=== PATIENT | male | born 1990 | race Caucasian/White ===

== ENCOUNTER 2020-12-07 00:59 | Inpatient (IN) | payer OTHER, SELFPAY ==
[2020-12-07] VITALS (15 sets, daily range): BP systolic 90–142; BP diastolic 53–102; PULSE 75–107; RESP 15–22; TEMP 36.6–37.3; O2SAT 97–100; BMI 27.1
--- NOTE | 2020-12-07 | ECG_ITS ---
Test Reason : CP Blood Pressure : / mmHG Vent. Rate : 082 BPM Atrial Rate : 082 BPM P-R Int : 136 ms QRS Dur : 080 ms QT Int : 338 ms P-R-T Axes : 047 029 039 degrees QTc Int : 394 ms Normal sinus rhythm Acute pericarditis Abnormal ECG No previous ECGs available Referred By: Lindsay Turpin Electronically Signed By:Daniel Kline
--- NOTE | ~2020-12-07 | CT_ITS ---
EXAMINATION: CT PULMONARY EMBOLISM STUDY CLINICAL INFORMATION: Right chest pain, elevated d-dimer. COMPARISON: Same day chest radiograph. TECHNIQUE: Contiguous helical images of the chest were obtained following the administration of IV contrast. Multiplanar reconstructions were performed. MIPS were obtained and reviewed. DLP: 302 mGy-cm. CONTRAST: 65 mL of Omnipaque 350 were administered without incident. FINDINGS: The heart is of normal size. There is no pericardial effusion. The great vessels are unremarkable. Specifically, there is no pulmonary arterial filling defect. There is no CT evidence for pulmonary embolism. There are no chest wall masses. Review of lung windows demonstrates that there are neither pleural effusions nor pneumothoraces. There are no consolidations. There are no pulmonary parenchymal nodules. Limited evaluation of the upper abdomen demonstrates that the liver is of normal size and attenuation without focal lesions. Normal adrenal glands are identified. CT/CT angio chest PE protocol IMPRESSION: No CT evidence for pulmonary embolism. Automated exposure control (Care Dose) Adjustment of the mA and/or kv according to patient size (this includes techniques or standardized protocols for targeted exams where dose is matched to indication / reason for exam; i.e. extremities or head).
--- NOTE | ~2020-12-07 | XR_ITS ---
EXAMINATION: CHEST 1 VIEW CLINICAL INFORMATION: Right-sided chest pain. COMPARISON: None. TECHNIQUE: An AP view of the chest is provided. FINDINGS: The cardiac silhouette is not enlarged. The mediastinal and hilar contours are unremarkable. There are neither pleural effusions nor pneumothoraces. There are no consolidations. The osseous structures are unremarkable. XR/XR chest 1V IMPRESSION: No evidence for acute disease.
--- NOTE | 2020-12-07 01:20 | ECG_ITS ---
Test Reason : REPEAT Blood Pressure : / mmHG Vent. Rate : 097 BPM Atrial Rate : 097 BPM P-R Int : 132 ms QRS Dur : 086 ms QT Int : 334 ms P-R-T Axes : 041 004 024 degrees QTc Int : 424 ms Normal sinus rhythm Subtle SANDI present-improved compared to previous ECG When compared with ECG of 07-DEC-2020 01:24, ST less elevated in Lateral leads Referred By: Generic ED Physician Electronically Signed By:Daniel Kline
--- NOTE | 2020-12-07 01:48 | PC.NURSE ---
PATIENT WAS PUT ON HEART MONITOR BY THIS PCT .
--- NOTE | 2020-12-07 02:18 | ED.CHESTPAIN ---
HPI - Chest Pain General Chief Complaint: Chest Pain Stated Complaint: Chest pain Time Seen by Provider: 12/07/20 02:00 Source: patient Mode of arrival: ambulatory Limitations: no limitations History of Present Illness HPI narrative: Patient comes emergency room complaining of right-sided chest pain. Patient received his 2nd dose of mother now 3 days ago. Patient states initially he had localized right-sided pain where he had his shots. The following day, patient noticed that he had right-sided chest pain radiating towards the left side, pain is worse with deep inspiration. Patient states that occasionally he feels short of breath. Patient states that he did have fever after his mother now injection, but yesterday the fever stopped. MD complaint: chest pain Related Data Allergies Allergy/AdvReac Type Severity Reaction Status Date / Time No Known Allergies Allergy Verified 12/07/20 01:08 Review of Systems Review of Systems: Constitutional : No Weight loss, No Fever, No Chills, No Night Sweats, No Fatigue, No Malaise ENT/Mouth : No Hearing loss, No Ear Pain, No Nasal Congestion, No Sinus Pain, No Hoarseness, No sore throat, No Rhinorrhea, No Swallowing Difficulty Eyes: No Eye Pain, No Swelling, No Redness, No Foreign Body, No Discharge, No Vision Changes Cardiovascular : Complaining of right-sided Chest Pain, No SOB, No Dyspnea on Exertion, No Orthopnea, No Edema, No Palpitations Respiratory : No Cough, No Sputum, No Wheezing, No Smoke Exposure, occasional Dyspnea, unrelated to exertion Gastrointestinal : No Nausea, No Vomiting, No Diarrhea, No Constipation, No abdominal Pain, No Hematochezia, No Melena Genitourinary : no irregular bleeding, No Dysuria, No Urinary Frequency, No Hematuria, No Urinary Incontinence, No Urgency, No Flank Pain, No Urinary Flow Changes, No Hesitancy Musculoskeletal : No joint pain, No Myalgias, No Joint Swelling Skin : No Skin Lesions, No rash Neuro : No Weakness, No Numbness, No Paresthesias, No Loss of Consciousness, No Dizziness, No Headache Psych : No Anxiety/Panic, No Depression, No SI/HI/AH/VH, No Social Issues, Heme/Lymph: No Bruising, No Bleeding,No Lymphadenopathy Endocrine : No Polyuria, No Polydipsia, No Temperature Intolerance PMFSH Past Medical History Medical History No acute medical problems Surgical History No pertinent past surgical history Social History Social History Alcohol intake: unknown Smoking Status: Never smoker Use of substances other than those prescribed or required for medical reasons: Unknown Advance Directives: No Advance Directives Information Provided: No Physical Exam Vital Signs: Vital Signs: Last Vital Signs Temp 98.6 F 12/07/20 03:34 Pulse 107 H 12/07/20 04:00 Resp 22 H 12/07/20 04:00 BP 113/77 12/07/20 04:00 Pulse Ox 98 12/07/20 04:00 Body Mass Index 27.1 Appearance: Alert. Oriented X3. No acute distress. Eyes: Pupils equal, round and reactive to light. ENT: Pharynx normal. Neck: Normal inspection. Neck supple. No lymph nodes noted. No crepitus CVS: Normal heart rate and rhythm. Pulses normal. Normal S1 and S2 Respiratory: No respiratory distress. Breath sounds normal. No Wheezing. No rales , non reproducible chest pain Abdomen: Soft and nontender. No rigidity. No distention. good BS x4 Skin: Skin warm and dry. Normal skin color. Normal skin turgor. Extremities: No lower extremity edema. No lower extremity edema. No Lacerations. No Rash Neuro: Oriented X 3. No motor deficit. No sensory deficit. Moving all extermities. No slurred speech. Course Course Course Narrative: I discussed the patient's EKGs and troponin with Dr Kline. Patient likely has pericarditis versus myocarditis. Patient received aspirin and colchicine, recommendations are not to give prednisone at this time. After treatment with colchicine aspirin, patient states that he feels much better, no longer having any chest pain. Patient will be admitted to the hospitalist service, patient will need echocardiogram in the morning. I discussed the patient with Dr. Gaines, patient being admitted. MDM - Chest Pain Lab Data Result diagrams: 12/07/20 02:17 12/07/20 02:17 Labs: Lab Results 12/07/20 12/07/20 12/07/20 Range/Units 02:17 02:17 02:17 WBC 13.9 H (4.8-10.8) X10*3/uL RBC 4.92 (4.60-5.80) X10*6/uL Hgb 15.2 (14.0-18.0) g/dl Hct 46.0 (42-52) % MCV 93.5 (80-98) fL MCH 30.9 (27.0-33.0) pg MCHC 33.0 (31.0-36.0) g/dl RDW 12.8 (11.0-16.0) % Plt Count 160 (160-400) X10*3/uL MPV 11.7 (9.4-12.4) fL Immature Gran % (Auto) 0.3 (0.0-0.4) % Neut % (Auto) 79.7 H (45-73) % Lymph % (Auto) 7.8 L (20-40) % [place] % (Auto) 11.0 (2-11) % Eos % (Auto) 1.1 (0-4) % Baso % (Auto) 0.1 (0-2) % Lymph # (Auto) 1.1 L (1.2-4.9) X10*3/uL [place] # (Auto) 1.5 H (0.1-1.2) X10*3/uL Eos # (Auto) 0.2 (0.0-0.4) X10*3/uL Baso # (Auto) 0.0 (0.0-0.2) X10*3/uL Abs Immat Gran (auto) 0.04 H (0.00-0.03) X10*3/uL Absolute Neuts (auto) 11.1 H (2.0-8.3) X10*3/uL Absolute Nucleated RBC 0.000 (0.0-0.012) X10*3/uL Nucleated RBC % (auto) 0.0 (0.0-0.2) /100WBC Smear Tech's Comments VERIFIED D-Dimer 295 NG/ML Sodium 140 (135-145) mmol/L Potassium 3.9 (3.3-5.1) mmol/L Chloride 104 (96-108) mmol/L Carbon Dioxide 25 (22-29) mmol/L Anion Gap 15 (12-20) BUN 10 (9-16) mg/dL Creatinine 1.00 (0.5-1.4) mg/dL Estim Creat Clear Calc 98.1 Estimated GFR > 60 Random Glucose 124 H (60-115) mg/dL Calcium 8.8 (8.4-10.2) mg/dL Troponin I High Sens (<3.5-35.0) ng/L 12/07/20 12/07/20 Range/Units 02:17 03:35 WBC (4.8-10.8) X10*3/uL RBC (4.60-5.80) X10*6/uL Hgb (14.0-18.0) g/dl Hct (42-52) % MCV (80-98) fL MCH (27.0-33.0) pg MCHC (31.0-36.0) g/dl RDW (11.0-16.0) % Plt Count (160-400) X10*3/uL MPV (9.4-12.4) fL Immature Gran % (Auto) (0.0-0.4) % Neut % (Auto) (45-73) % Lymph % (Auto) (20-40) % [place] % (Auto) (2-11) % Eos % (Auto) (0-4) % Baso % (Auto) (0-2) % Lymph # (Auto) (1.2-4.9) X10*3/uL [place] # (Auto) (0.1-1.2) X10*3/uL Eos # (Auto) (0.0-0.4) X10*3/uL Baso # (Auto) (0.0-0.2) X10*3/uL Abs Immat Gran (auto) (0.00-0.03) X10*3/uL Absolute Neuts (auto) (2.0-8.3) X10*3/uL Absolute Nucleated RBC (0.0-0.012) X10*3/uL Nucleated RBC % (auto) (0.0-0.2) /100WBC Smear Tech's Comments D-Dimer NG/ML Sodium (135-145) mmol/L Potassium (3.3-5.1) mmol/L Chloride (96-108) mmol/L Carbon Dioxide (22-29) mmol/L Anion Gap (12-20) BUN (9-16) mg/dL Creatinine (0.5-1.4) mg/dL Estim Creat Clear Calc Estimated GFR Random Glucose (60-115) mg/dL Calcium (8.4-10.2) mg/dL Troponin I High Sens 94121.4 H 73714.6 H D (<3.5-35.0) ng/L Imaging Data CTA PE: Radiologist's impression: [address] [id number] Scan ReportSigned Patient: Yarelis Clark AMR#: [id number]: 1990Acct:[id number]/Sex: 30 / MADM Date: 12/07/20Loc: [email or web address].EDAttending Dr: Ordering Physician: MARIA ISABEL TURPIN MD Date of Service: 12/07/20 Procedure(s): CT angio chest PE protocol Accession Number(s): [id number] cc: MARIA ISABEL TURPIN MD~ EXAMINATION: CT PULMONARY EMBOLISM STUDY CLINICAL INFORMATION: Right chest pain, elevated d-dimer. COMPARISON: Same day chest radiograph. TECHNIQUE: Contiguous helical images of the chest were obtained following the administration of IV contrast. Multiplanar reconstructions were performed. MIPS were obtained and reviewed. DLP: 302 mGy-cm. CONTRAST: 65 mL of Omnipaque 350 were administered without incident. FINDINGS: The heart is of normal size. There is no pericardial effusion. The great vessels are unremarkable. Specifically, there is no pulmonary arterial filling defect. There is no CT evidence for pulmonary embolism. There are no chest wall masses. Review of lung windows demonstrates that there are neither pleural effusions nor pneumothoraces. There are no consolidations. There are no pulmonary parenchymal nodules. Limited evaluation of the upper abdomen demonstrates that the liver is of normal size and attenuation without focal lesions. Normal adrenal glands are identified. Chest x-ray: Radiologist's impression: The cardiac silhouette is not enlarged. The mediastinal and hilar contours are unremarkable. There are neither pleural effusions nor pneumothoraces. There are no consolidations. The osseous structures are unremarkable. XR/XR chest 1V IMPRESSION: No evidence for acute disease. ECG Data ECG #1: Attestation: I personally reviewed and interpreted this ECG as follows: (Sinus rhythm, heart rate 82, diffuse ST segment elevation in all leads, consistent with acute pericarditis, QTC 394) ECG #2: Attestation: I personally reviewed and interpreted this ECG as follows: (Diffuse ST segment elevation in all leads, normal sinus rhythm, heart rate 97, QTC 424)
[2020-12-07 02:24] LABS: Basophils Percent Auto 0.1 % (0-2); Eosinophils Absolute Auto 0.2 X10*3/uL (0.0-0.4); Eosinophils Percent Auto 1.1 % (0-4); Hemoglobin 15.2 g/dl (14.0-18.0); Imm Gran Abs Auto 0.04 X10*3/uL (0.00-0.03); Imm Gran Pct Auto 0.3 % (0.0-0.4); Lymphocytes Absolute Auto 1.1 X10*3/uL (1.2-4.9); Lymphocytes Percent Auto 7.8 % (20-40); MANUAL DIFF FLAG SCAN; Mean Corpuscular Hemoglobin 30.9 pg (27.0-33.0); Mean Corpuscular Volume 93.5 fL (80-98); Mean Platelet Volume 11.7 fL (9.4-12.4); Monocytes Absolute Auto 1.5 X10*3/uL (0.1-1.2); Neutrophils Absolute Auto 11.1 X10*3/uL (2.0-8.3); Neutrophils Percent Auto 79.7 % (45-73); Platelet Count 160 X10*3/uL (160-400); Red Blood Count 4.92 X10*6/uL (4.60-5.80); Red Cell Distribution Width 12.8 % (11.0-16.0); SCAN SMEAR FLAG 1; White Blood Count 13.9 X10*3/uL (4.8-10.8)
[2020-12-07 02:33] LABS: D Dimer 295 NG/ML
[2020-12-07 02:44] LABS: SLIDE REVIEW VERIFIED
[2020-12-07 02:47] LABS: Anion Gap 15 (12-20); Blood Urea Nitrogen 10 mg/dL (9-16); Calcium 8.8 mg/dL (8.4-10.2); Carbon Dioxide 25 mmol/L (22-29); Chloride 104 mmol/L (96-108); Creatinine Clr Calc Pharmacy 98.1; Estimated Glomerular Filt Rate > 60; Glucose Random 124 mg/dL (60-115); Potassium 3.9 mmol/L (3.3-5.1); Sodium 140 mmol/L (135-145)
[2020-12-07] MEDS: iohexoL 350 MG/ML 100 ML INFUS..BTL 65 ML IV (04:00)
[2020-12-07] MEDS: Colchicine 0.6 MG TABLET 1.2 MG PO (04:19)
[2020-12-07] MEDS: Aspirin Enteric Coated 325 MG TABLET.DR 650 MG PO (04:19)
[2020-12-07 07:27] LABS: COVID-19 Test Negative (Negative)
--- NOTE | 2020-12-07 07:53 | PC.NURSE ---
pt a/o x 3 no sob/mirella noted skin pink warm dry speaks in full sentences. pt aware of plan of care for admission to hosp. pt denies any pain at this time . bs + x 4 quads, lungs sound - cta. heart sounds regular.
--- NOTE | 2020-12-07 08:20 | PC.NURSE ---
dr. wick (loss prevention detective) at bedside, pt aware of plan of care for admission to hosp.
--- NOTE | 2020-12-07 09:30 | PM.CNCAR ---
History of Present Illness History of Present Illness Date of Service: 12/07/20 Requesting physician: Lindsay Turpin Chief complaint: Chest pain, pericarditis Narrative: Pleasant 30-year-old gentleman with no past medical issues presenting with sharp pleuritic chest pain which started 1 day after getting the 2nd dose of moderna COVID-19 vaccine. He said he got sick after the 1st chart and had fevers. He received his 2nd shot of vaccine on when his stay. he said he started developing sharp chest discomfort which was worse with lying down and better with sitting up. There was persistent discomfort and he waited 1 day and then came to the ER yesterday. His ECG showed changes of diffuse ST elevations. His troponins were positive. He was given aspirin and colchicine which improved the symptoms completely. He is currently asymptomatic. He has no exertional chest discomfort or any other concerning symptoms. He had CT pulmonary angiogram to rule out pulmonary embolism which was negative. PMFSH Past Medical History Medical History No acute medical problems Surgical History Surgical History No pertinent past surgical history Social History Social History Alcohol intake: unknown Smoking Status: Never smoker Use of substances other than those prescribed or required for medical reasons: Unknown Advance Directives: No Advance Directives Information Provided: No Meds Allergies Allergy/AdvReac Type Severity Reaction Status Date / Time No Known Allergies Allergy Verified 12/07/20 01:08 Home Medications Medication Instructions Recorded Confirmed Last Taken Type No Known Home Meds 12/07/20 12/07/20 Unknown History Physical Exam Vital Signs: Vital Signs: Last Vital Signs Temp 98.5 F 12/07/20 07:52 Pulse 83 12/07/20 07:52 Resp 15 12/07/20 07:52 BP 99/66 12/07/20 07:52 Pulse Ox 97 12/07/20 07:52 Body Mass Index 27.1 GENERAL APPEARANCE: in no acute distress, well developed, well nourished. HEENT: unremarkable. HEAD: normocephalic, atraumatic. NECK/THYROID: no carotid bruit, no jugular venous distention. SKIN: no suspicious lesions, warm and dry. HEART: no murmurs, regular rate and rhythm, S1, S2 normal. LUNGS: clear to auscultation bilaterally. ABDOMEN: normal, bowel sounds present, soft, nontender, nondistended. EXTREMITIES: no clubbing, cyanosis, or edema. PERIPHERAL PULSES: equal. NEUROLOGIC: nonfocal, alert and oriented. PSYCH: mood/affect full range. Results Labs and Meds Result diagrams: 12/07/20 02:17 12/07/20 02:17 Lab results: Laboratory Results - last 24 hr 12/07/20 12/07/20 12/07/20 02:17 02:17 02:17 WBC 13.9 H RBC 4.92 Hgb 15.2 Hct 46.0 MCV 93.5 MCH 30.9 MCHC 33.0 RDW 12.8 Plt Count 160 MPV 11.7 Immature Gran % (Auto) 0.3 Neut % (Auto) 79.7 H Lymph % (Auto) 7.8 L [place] % (Auto) 11.0 Eos % (Auto) 1.1 Baso % (Auto) 0.1 Lymph # (Auto) 1.1 L [place] # (Auto) 1.5 H Eos # (Auto) 0.2 Baso # (Auto) 0.0 Abs Immat Gran (auto) 0.04 H Absolute Neuts (auto) 11.1 H Absolute Nucleated RBC 0.000 Nucleated RBC % (auto) 0.0 Smear Tech's Comments VERIFIED D-Dimer 295 Sodium 140 Potassium 3.9 Chloride 104 Carbon Dioxide 25 Anion Gap 15 BUN 10 Creatinine 1.00 Estim Creat Clear Calc 98.1 Estimated GFR > 60 Random Glucose 124 H Calcium 8.8 Troponin I High Sens COVID-19 ([facility]) COVID-19 Clin Com 12/07/20 12/07/20 12/07/20 02:17 03:35 06:52 WBC RBC Hgb Hct MCV MCH MCHC RDW Plt Count MPV Immature Gran % (Auto) Neut % (Auto) Lymph % (Auto) [place] % (Auto) Eos % (Auto) Baso % (Auto) Lymph # (Auto) [place] # (Auto) Eos # (Auto) Baso # (Auto) Abs Immat Gran (auto) Absolute Neuts (auto) Absolute Nucleated RBC Nucleated RBC % (auto) Smear Tech's Comments D-Dimer Sodium Potassium Chloride Carbon Dioxide Anion Gap BUN Creatinine Estim Creat Clear Calc Estimated GFR Random Glucose Calcium Troponin I High Sens 33182.4 H 60569.6 H D COVID-19 ([facility]) Negative COVID-19 Clin Com See Note ECG Attestation: I personally reviewed and interpreted this ECG as follows: Interpretation: ECGs reviewed. His first ECG showed diffuse ST elevations. No obvious MD depressions. 2nd ECG showed improvement in the ST changes. Imaging Radiologist's impression: Impressions Chest X-Ray 12/07/20 02:01 IMPRESSION: No evidence for acute disease. Chest CTA 12/07/20 03:16 IMPRESSION: No CT evidence for pulmonary embolism. Automated exposure control (Care Dose) Adjustment of the mA and/or kv according to patient size (this includes techniques or standardized protocols for targeted exams where dose is matched to indication / reason for exam; i.e. extremities or head). Assessment and Plan (1) Myopericarditis: Status: Acute 30-year-old gentleman who is presenting with chest pain after receiving 2nd dose of COVID-19 vaccine. His clinical presentation is consistent with pericarditis and his biomarkers are abnormal pointing toward perimyocarditis. His symptoms as resolved after 1 dose of colchicine and aspirin. I think we should continue the colchicine 0.6 mg once a day. We will check echocardiogram to assess LV for any wall motion abnormality. If his LV function is normal and he stays stable overnight I think can be discharged home. If his LV function is abnormal then we will pursue cardiac MRI on him. His clinical story is not consistent with acute coronary syndrome. Thank you for allowing me to participate in the care of your patient. Please feel free to contact me if you have any questions.
--- NOTE | 2020-12-07 10:10 | PC.NURSE ---
pt seen by hosp buyer intern (filipe), pt aware of plan of care for admission to hosp.
--- NOTE | 2020-12-07 11:00 | CA_ITS ---
Transthoracic Echocardiogram Patient (Last, First, Middle): Yarelis Clark A Gender: Male Date of : 1990 Age: 30 Procedure Date: 12/07/2020 Procedure Type: Transthoracic Echocardiogram Location: ER Height: 162.56 cm Weight: 71.67 kg BSA: 1.77 m2 Heart Rate: bpm BP: 107 / 71 mmHg Emergency Management Specialist: Referring MD: Daniel Kline MD Symptoms: NSTEMI Study Quality: Good ECG Rhythm: Sinus Conclusions: - Normal study Findings Left Ventricle Normal left ventricular size, thickness, systolic function, and wall motion. The visually estimated ejection fraction is between 55-60%. Diastolic function is normal for age. Right Ventricle Normal right ventricular cavity size and systolic function. Atria Both atria are normal in size. There is no evidence of interatrial shunt by color Doppler. Aortic Valve Normal aortic valve structure and function. There is no aortic valve stenosis. There is no aortic valve regurgitation. Mitral Valve Normal mitral valve structure and function. There is trace mitral valve regurgitation. There is no mitral valve stenosis. Pulmonic Valve Normal pulmonic valve structure and function. There is trace pulmonic valve regurgitation. Tricuspid Valve Normal tricuspid valve structure and function. There is trace tricuspid valve regurgitation. Normal right atrial pressure. There is no evidence of pulmonary hypertension. Great Vessels All visible segments of the aorta are normal in size. The visualized portions of the pulmonary artery and branches are normal. Venous The inferior vena cava is normal in size and collapses greater than 50% with inspiration. Pericardium/Pleural There is no evidence of pericardial effusion. Prior Study Comparison No prior study available for comparison. Measurements 2D Linear Measurements IVSd: 0.84 0.6-0.9/0.6-1.0 cm LVIDd: 4.92 3.9-5.3/4.2-5.9 cm LVIDd Index: 2.78 2.4-3.2/2.2-3.1 cm/m2 LVIDs: 3.44 2.0-3.6 cm LVPWd: 0.85 0.7-1.1 cm Ao Root: 2.80 2.1-3.5 cm LA Diam: 3.20 2.7-3.8/3.0-4.0 cm LAIDs Index: 1.81 1.5-2.3 cm/m2 LV Mass: 175.68 67-162/88-224 g LV Mass Index: 99.25 43-95/49-115 g/m2 LVOT Diam: 2.00 3.0+(-)1.3 cm 2D Systolic Function EF 4C: 57.40 >55% EF 2C: 56.90 >55% EF BiP: 56.90 >55% Mitral Valve MV Pk E: 0.72 MV PK A: 0.68 MV Decel Time: 201.00 E/A: 1.10 E'Lateral: 9.38 E'Medial: 9.28 E/E' Med: 7.80 E/E' Lat: 7.70 PHT: 59.00 MVA PHT: 3.73 Decel [place]: 3.60 Aortic Valve AoV Pk Ashish: 1.23 AoV Mn Ashish: 0.84 AoV VTI: 0.31 AoV Pk Grad: 6.00 Aov Mn Grad: 3.00 CARLOS Cont.VTI: 2.26 LVOT LVOT Pk Ashish: 1.03 LVOT Mn Ashish: 0.75 LVOT VTI: 0.22 LVOT Pk Grad: 4.00 LVOT Mn Grad: 3.00 LVOT Diam: 2.00 LVOT Area: 3.14 Diastolic Function MV Pk E: 0.72 MV Pk A: 0.68 E/A: 1.10 E'Medial: 9.28 E/E' Med: 7.80 E' Laterial: 9.38 E/E' Lat: 7.70 Tricuspid Valve TR Pk Ashish: 2.01 TR Pk Grad: 16.00 RA Press: 3.00 RVSP: 19.00 Great Vessels Aorta Ao Root-2D: 2.80 2.0-3.7 cm Ao Asc: 2.70 2.1-3.4 cm Pulmonary Valve PV Pk Ashish: 1.07 Peak PV Grad: 5.00 Updated in Other Vendor System with Status of Final Daniel Kline MD electronically signed on 12/07/2020 7:13:19 PM with status of Final
--- NOTE | 2020-12-07 11:19 | P.HPHOSP_ITS ---
History of Present Illness Date of Service: 12/07/20 <Aixa Arauz NP - Last Filed: 12/07/20 13:59> Chief Complaint: Chest pain <Aixa Arauz NP - Last Filed: 12/07/20 13:59> 30-year-old man presented to the ER with complaints of chest pain and shortness of breath over the last 3 days. He reports that he received his 2nd dose of the Moderna vaccine for COVID-19. After that the had some right-sided chest pain that felt like quick jabs that would come and go. He then reported that this pain was worse with deep inspiration and lying down. He reported a fever after the vaccination but denied nausea, vomiting, diarrhea, recent illness, other medical problems. 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 In the ER EKG did show some diffuse ST wave abnormalities, [place] [address].6, chest CTA negative for PE. He received an initial dose of colchicine in the ER as well as aspirin. He will be admitted for further management and treatment of acute myopericarditis. <Aixa Arauz NP - Last Filed: 12/07/20 13:59> Review of Systems Review of Systems: Denies any recent fever chills or decrease in appetite respiratory denies any shortness of breath coverage production cardiovascular see HPI gastrointestinal denies any dysphagia abdominal pain nausea vomiting or diarrhea genitourinary denies any dysuria frequency or hematuria musculoskeletal denies any joint pain or swelling neuropsych denies any weakness or seizures all other systems reviewed are negative <Aixa Arauz NP - Last Filed: 12/07/20 13:59> [facility] Medical History: Medical History (Updated 12/07/20 @ 09:35 by Daniel Kline MD) No acute medical problems <Aixa Arauz NP - Last Filed: 12/07/20 13:59> Pertinent family history: No cardiac disease <Aixa Arauz NP - Last Filed: 12/07/20 13:59> Surgical History: Surgical History (Updated 12/07/20 @ 11:33 by Aixa Arauz NP) H/O adenoidectomy No pertinent past surgical history <Aixa Arauz NP - Last Filed: 12/07/20 13:59> Social History: Social History Alcohol intake: unknown Smoking Status: Never smoker Use of substances other than those prescribed or required for medical reasons: Unknown Advance Directives: No Advance Directives Information Provided: No <Aixa Arauz NP - Last Filed: 12/07/20 13:59> Meds Allergies/Adverse reactions: Allergies Allergy/AdvReac Type Severity Reaction Status Date / Time lactose Allergy Diarrhea Verified 12/07/20 13:40 <Aixa Arauz NP - Last Filed: 12/07/20 13:59> Active Medications: Current Medications Generic Name Dose Route Start Last Admin Trade Name Eliana PRN Reason Stop Dose Admin Colchicine 0.6 mg 12/08/20 09:00 Colchicine 0.6 Mg Tablet PO DAILY YURIDIA <Aixa Arauz NP - Last Filed: 12/07/20 13:59> Physical Exam Vital Signs and Narrative: Vital Signs: Last Vital Signs Temp 98.2 F 12/07/20 10:57 Pulse 95 12/07/20 10:57 Resp 19 12/07/20 10:57 BP 107/71 12/07/20 10:57 Pulse Ox 97 12/07/20 10:57 Body Mass Index 27.1 <Aixa Arauz NP - Last Filed: 12/07/20 13:59> Appearing in no acute distress head is normocephalic atraumatic eyes pupils are PERRLA sclera is anicteric mouth throat mucous membranes are intact and moist neck is supple no lymphadenopathy, no JVD noted lung sounds are clear to auscultation heart regular rate rhythm, clear S1, S2, no murmur, gallop or rub noted positive bowel sounds, abdomen is soft, nontender neuro patient is alert x3, no focal deficits <Aixa Arauz NP - Last Filed: 12/07/20 13:59> Results Labs CBC and Chem 7: : 12/07/20 02:17 12/07/20 02:17 <Aixa Arauz NP - Last Filed: 12/07/20 13:59> Labs: Laboratory Results - last 24 hr 12/07/20 12/07/20 12/07/20 02:17 02:17 02:17 MCV 93.5 MCH 30.9 MCHC 33.0 RDW 12.8 Plt Count 160 MPV 11.7 Immature Gran % (Auto) 0.3 Neut % (Auto) 79.7 H Lymph % (Auto) 7.8 L Arroyo % (Auto) 11.0 Eos % (Auto) 1.1 Baso % (Auto) 0.1 Lymph # (Auto) 1.1 L Arroyo # (Auto) 1.5 H Eos # (Auto) 0.2 Baso # (Auto) 0.0 Abs Immat Gran (auto) 0.04 H Absolute Neuts (auto) 11.1 H Absolute Nucleated RBC 0.000 Nucleated RBC % (auto) 0.0 Smear Tech's Comments VERIFIED D-Dimer 295 Anion Gap 15 Estim Creat Clear Calc 98.1 Estimated GFR > 60 Random Glucose 124 H Calcium 8.8 Troponin I High Sens COVID-19 ([facility]) COVID-19 Clin Com 12/07/20 12/07/20 12/07/20 02:17 03:35 06:52 MCV MCH MCHC RDW Plt Count MPV Immature Gran % (Auto) Neut % (Auto) Lymph % (Auto) Arroyo % (Auto) Eos % (Auto) Baso % (Auto) Lymph # (Auto) Arroyo # (Auto) Eos # (Auto) Baso # (Auto) Abs Immat Gran (auto) Absolute Neuts (auto) Absolute Nucleated RBC Nucleated RBC % (auto) Smear Tech's Comments D-Dimer Anion Gap Estim Creat Clear Calc Estimated GFR Random Glucose Calcium Troponin I High Sens 13170.4 H 93664.6 H D COVID-19 ([facility]OVANY) Negative COVID-19 Clin Com See Note <Aixa Arauz NP - Last Filed: 12/07/20 13:59> Imaging Radiologist's Impressions: Impressions Chest X-Ray 12/07/20 02:01 IMPRESSION: No evidence for acute disease. Chest CTA 12/07/20 03:16 IMPRESSION: No CT evidence for pulmonary embolism. Automated exposure control (Care Dose) Adjustment of the mA and/or kv according to patient size (this includes techniques or standardized protocols for targeted exams where dose is matched to indication / reason for exam; i.e. extremities or head). <Aixa Arauz NP - Last Filed: 12/07/20 13:59> Assessment and Plan (1) Myopericarditis: Status: Acute <Aixa Arauz NP - Last Filed: 12/07/20 13:59> 30-year-old man admitted with mild pericarditis with symptoms over the last 2-3 days. He reported a symptoms started after his 2nd dose of the Moderna vaccine for COVID-19. He otherwise has no other health problems and has not had any recent illness. Myopericarditis. Unknown etiology at this time. Symptoms started after 2nd check COVID-19 vaccination. - start colchicine 0.6 mg BID - ibuprofen 600 mg TID -cardiology consultation -echocardiogram Troponin elevation. Secondary to myopericarditis. Diffuse EKG changes as well. -Telemetry monitoring DVT prophylaxis with early ambulation Attending: Dr. Campbell <Aixa Arauz NP - Last Filed: 12/07/20 13:59>
--- NOTE | 2020-12-07 11:27 | PC.NURSE ---
pt is having echocardiogram at bedside.
--- NOTE | 2020-12-07 11:53 | P.EN_ITS ---
Event Note Date of Service: 12/07/20 Event Note: 30-year-old gentleman with no significant past medical history not on home medication presented to [facility] with symptoms of chest pain worse with lying and improves with sitting patient received COVID vaccine 2nd short day prior to this presentation, he denies any similar episodes in the past,, denies illicit drug use, workup in the ER showed an EKG with diffuse ST elevation with significant elevation in troponin, D-dimer 295, CTA chest showed no PE patient's symptoms and findings most consistent with myopericarditis, patient received 1 dose of colchicine and aspirin with significant improvement in symptoms On examination awake alert, no distress Lungs clear to auscultation heart tachy regular Extremities no edema Skin no rash Assessment and plan Myopericarditis as per presentation and workup, patient evaluated by Cardiology will obtain echocardiogram to asses LV function, no clinical evidence of cardiac tamponade will treat patient with colchicine 0.6 mg b.i.d. and ibuprofen 600 mg t.i.d. will add PPI for GI prophylaxis will need 3 months of colchicine will taper ibuprofen weekly for next 2-4 weeks.
--- NOTE | 2020-12-07 13:42 | PC.NURSE ---
pt ate 50% of lunch.pt aware of plan of care for admission to hosp.
[2020-12-07] MEDS: Ibuprofen 600 MG TABLET PO (16:11)
[2020-12-07] MEDS: Omeprazole 20 MG CAPSULE.DR PO (16:11)
[2020-12-07] MEDS: 0.9 % Sodium Chloride Flush 3 ML SYRINGE IVFLUSH (16:56)
--- NOTE | 2020-12-07 20:37 | PC.NURSE ---
PT UPRIGHT IN BED, RR EVEN UNLABORED, SKIN WPD, AOX3, NAD. PT OFFERS NO COMPLAINTS, REPORTS RESOLUTION OF SX SINCE FIRST DOSE OF MEDICATION. PT REMAINS IN NSR ON TELE, VSS. PT REQUESTING TO BE D/C'D, HOSPITALIST TO BEDSIDE TO EXPLAIN NEED FOR CONTINUED OBSERVATION OVERNIGHT, PT AWARE/AGREEABLE TO PLAN OF CARE.
[2020-12-07 21:17] LABS: C Reactive Protein 5.58 mg/dL (< or = 0.50); Rheumatoid Factor < 15.0 IU/mL (<15.0)
[2020-12-07 22:25] LABS: Erythrocyte Sedimentation Rate 9 MM/HR (0-15)
[2020-12-07] MEDS: Colchicine 0.6 MG TABLET PO (22:45)
[2020-12-08] MEDS: 0.9 % Sodium Chloride Flush 3 ML SYRINGE IVFLUSH (00:02)
[2020-12-08] MEDS: Ibuprofen 600 MG TABLET PO (07:38)
[2020-12-08] MEDS: Omeprazole 20 MG CAPSULE.DR PO (07:39)
--- NOTE | 2020-12-08 08:08 | PC.NURSE ---
report taken from derrick jimenez pt admitted for myopericarditis, sitting up in stretcher, sts chest pain has subsided this am. pt not interested in breakfast this am, given morning medications, tolerating po w/o issue. pleasant affect, denies any question about plan of care. wctm.
[2020-12-08 08:24] VITALS: BP 122/64; PULSE 74; RESP 20; TEMP 36.6; O2SAT 97
--- NOTE | 2020-12-08 08:54 | PM.PNCARD ---
Subjective Subjective Date of Service: 12/08/20 Interval history: Feeling better. No CP Review of Systems Review of Systems No symptoms Yes all other systems are reviewed and are negative Physical Exam Vital Signs: Last Vital Signs Temp 97.9 F 12/08/20 08:24 Pulse 74 12/08/20 08:24 Resp 20 12/08/20 08:24 BP 122/64 12/08/20 08:24 Pulse Ox 97 12/08/20 08:24 Body Mass Index 27.1 GENERAL APPEARANCE: in no acute distress, well developed, well nourished. HEENT: unremarkable. HEAD: normocephalic, atraumatic. NECK/THYROID: no carotid bruit, no jugular venous distention. SKIN: no suspicious lesions, warm and dry. HEART: no murmurs, regular rate and rhythm, S1, S2 normal. LUNGS: clear to auscultation bilaterally. ABDOMEN: normal, bowel sounds present, soft, nontender, nondistended. EXTREMITIES: no clubbing, cyanosis, or edema. PERIPHERAL PULSES: equal. NEUROLOGIC: nonfocal, alert and oriented. PSYCH: mood/affect full range. Results Labs and Meds Result diagrams: 12/07/20 02:17 12/07/20 02:17 Lab results: Laboratory Results - last 24 hr 12/07/20 12/07/20 20:51 20:51 ESR 9 C-Reactive Protein 5.58 H Rheumatoid Factor < 15.0 Progress Note: A&P Assessment and plan (1) Myopericarditis: Status: Acute Assessment and Plan: 30-year-old gentleman presented for myopericarditis after 2nd dose of COVID vaccine. His symptoms were mostly pericarditis and if with colchicine. I think we should continue colchicine as outpatient. His echocardiogram was completely normal. He should not do any strenuous exercise or play sports for couple of months. We will do a cardiac MRI on him to understand the extent of myocarditis. Thank you for allowing me to participate in the care of your patient. Please feel free to contact me if you have any questions. Fall Risk Details Current Medications: Current Medications Generic Name Dose Route Start Last Admin Trade Name Freq PRN Reason Stop Dose Admin Acetaminophen 650 mg 12/07/20 16:19 Acetaminophen 325 Mg Tablet PO Q6H PRN Pain, Mild (Pain Scale 1-3) Colchicine 0.6 mg 12/07/20 21:00 12/07/20 22:45 Colchicine 0.6 Mg Tablet PO 0.6 mg BID YURIDIA Administration Ibuprofen 600 mg 12/07/20 17:00 12/08/20 07:38 Ibuprofen 600 Mg Tablet PO 600 mg TIDWM YURIDIA Administration Omeprazole 20 mg 12/07/20 16:30 12/08/20 07:39 Omeprazole 20 Mg Capsule.Dr PO 20 mg BID@0630,8980 YURIDIA Administration Ondansetron HCl 4 mg 12/07/20 16:19 Ondansetron Hcl 4 Mg/2 Ml Vial IVPUSH Q8H PRN Nausea and Vomiting Sodium Chloride 3 ml 12/07/20 16:19 12/08/20 08:07 0.9 % Sodium Chloride Flush 3 Ml Syringe IVFLUSH Not Given QSHIFT [facility] Time Spent With Patient Time: Total time spent is greater than 50% in coordination of care (as documented) at patient's floor/unit and/or counseling patient: Time with patient: less than 15 minutes
[2020-12-08] MEDS: Colchicine 0.6 MG TABLET PO (09:32)
--- NOTE | 2020-12-08 10:40 | PM.DS ---
DS: Providers Provider Date of Service: 12/08/20 <Aixa Arauz NP - Last Filed: 12/08/20 10:50> 12/08/20 <Manpreet Campbell MD - Last Filed: 12/08/20 16:03> Date of admission: 12/07/20 14:51 <Aixa Arauz NP - Last Filed: 12/08/20 10:50> Date of discharge: 12/08/20 <Aixa Arauz NP - Last Filed: 12/08/20 10:50> Primary care physician: Artem Lynn MD <Aixa Arauz NP - Last Filed: 12/08/20 10:50> Admitting clinician: Aixa Arauz <Aixa Arauz NP - Last Filed: 12/08/20 10:50> Attending physician on admission: Manpreet Campbell <Aixa Arauz NP - Last Filed: 12/08/20 10:50> Attending physician on discharge: Manpreet Campbell <Aixa Arauz NP - Last Filed: 12/08/20 10:50> Discharging clinician: Aixa Arauz <Aixa Arauz NP - Last Filed: 12/08/20 10:50> DS: Diagnosis Discharge Diagnosis (1) Myopericarditis: Status: Acute <Aixa Arauz NP - Last Filed: 12/08/20 10:50> DS: Medications Discharge Medications Home Medications: Previous Rx's Medication Instructions Recorded colchicine [Colcrys] 0.6 mg PO BID #180 tab 12/08/20 ibuprofen 600 mg PO TIDWM #42 tab 12/08/20 omeprazole 20 mg PO BID@0630,1630 #28 cap 12/08/20 <Aixa Arauz NP - Last Filed: 12/08/20 10:50> DS: Summary Hospital Course Hospital Course: HP as per admitting provider 30-year-old man presented to the ER with complaints of chest pain and shortness of breath over the last 3 days. He reports that he received his 2nd dose of the Moderna vaccine for COVID-19. After that the had some right-sided chest pain that felt like quick jabs that would come and go. He then reported that this pain was worse with deep inspiration and lying down. He reported a fever after the vaccination but denied nausea, vomiting, diarrhea, recent illness, other medical problems. 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 In the ER EKG did show some diffuse ST wave [place], [place] [address].6, chest CTA negative for PE. He received an initial dose of colchicine in the ER as well as aspirin. He will be admitted for further management and treatment of acute myopericarditis . Myopericarditis. Symptoms started directly after 2nd COVID-19 vaccine. Once patient presented to the emergency department he had sharp chest pains and worsening pain with inspiration. [place] [address].4, [address]939.6 with diffuse abnormalities to the EKG. Patient responded well to initial treatment of aspirin and colchicine. Transthoracic echocardiogram showed normal left ventricular size, thickness, systolic function and wall motion. Chest x-ray showed no evidence of acute disease or enlarged heart. Patient has remained hemodynamically stable. Symptoms have improved with current treatment. He was seen and evaluated by Cardiology and will follow-up as outpatient. Patient will be on ibuprofen, colchicine and Prilosec as outpatient treatment. He was advised to not do any contact sports for at least 2 months and avoid heavy lifting and strenuous activity. At this time patient is medically safe for discharge. Attending: Dr. Campbell <Aixa Arauz NP - Last Filed: 12/08/20 10:50> Time Spent with Patient Time attestation: Total time spent providing and/or coordinating discharge services: <Aixa Arauz NP - Last Filed: 12/08/20 10:50> Discharge coordination time: Greater than 30 minutes <Aixa Arauz NP - Last Filed: 12/08/20 10:50> Physical Exam Vital Signs: Vital Signs: Last Vital Signs Temp 97.9 F 12/08/20 08:24 Pulse 74 12/08/20 08:24 Resp 20 12/08/20 08:24 BP 122/64 12/08/20 08:24 Pulse Ox 97 12/08/20 08:24 Body Mass Index 27.1 <Aixa Arauz NP - Last Filed: 12/08/20 10:50> Appearing in no acute distress head is normocephalic atraumatic eyes pupils are PERRLA sclera is anicteric mouth throat mucous membranes are intact and moist neck is supple no lymphadenopathy, no JVD noted lung sounds are clear to auscultation heart regular rate rhythm, clear S1, S2 positive bowel sounds, abdomen is soft, nontender neuro patient is alert x3, no focal deficits <Aixa Arauz NP - Last Filed: 12/08/20 10:50> DS: Data Data Completed and Pending Labs on day of discharge: Laboratory Results - last 24 hr 12/07/20 12/07/20 20:51 20:51 ESR 9 C-Reactive Protein 5.58 H Rheumatoid Factor < 15.0 <Aixa Arauz NP - Last Filed: 12/08/20 10:50> Discharge Plan Discharge Anticipated Discharge Date/Time: 12/08/20 10:25 <Aixa Arauz NP - Last Filed: 12/08/20 10:50> Patient Disposition: Home, Self-Care <Aixa Arauz NP - Last Filed: 12/08/20 10:50> Discharge Diagnosis: Myopericarditis <Aixa Arauz NP - Last Filed: 12/08/20 10:50> Myopericarditis <Manpreet Campbell MD - Last Filed: 12/08/20 16:03> Referrals: Artem Lnyn MD [Primary Care Provider] - 1 Week <Aixa Arauz NP - Last Filed: 12/08/20 10:50> Discharge Medications: New omeprazole 20 mg Capsule,Delayed Release(Dr/Ec) 20 mg PO BID@0630,1630 Qty: 28 RF: 0 ibuprofen 600 mg Tablet 600 mg PO TIDWM Qty: 42 RF: 0 colchicine [Colcrys] 0.6 mg Tablet 0.6 mg PO BID Qty: 180 RF: 0 <Aixa Arauz NP - Last Filed: 12/08/20 10:50> Discharge Orders: Discharge Order (Routine); Ordered 12/08/20 Ordered By: Aixa Arauz <Aixa Arauz NP - Last Filed: 12/08/20 10:50> Diet: advance to usual diet <Aixa Arauz NP - Last Filed: 12/08/20 10:50> advance to usual diet <Manpreet Campbell MD - Last Filed: 12/08/20 16:03> Activity on Discharge: No Contact sports <Aixa Arauz NP - Last Filed: 12/08/20 10:50> No Contact sports <Manpreet Campbell MD - Last Filed: 12/08/20 16:03> Stand Alone Forms: Patient Portal Discharge page <Aixa Arauz NP - Last Filed: 12/08/20 10:50> Activity Restrictions/Additional Instructions: No contact sports for 3 months, no heavy lifting <Aixa Arauz NP - Last Filed: 12/08/20 10:50> Care Plan Goals: Resolution of symptoms of pericarditis <Aixa Arauz NP - Last Filed: 12/08/20 10:50> Health Concerns: Myopericarditis <Aixa Arauz NP - Last Filed: 12/08/20 10:50> Plan of Treatment: Follow up with temperature inspector Dr. Kline [phone] Take medication as prescribed <Aixa Arauz NP - Last Filed: 12/08/20 10:50> Assessment: See discharge summary <Aixa Arauz NP - Last Filed: 12/08/20 10:50> Discharge Date/Time: 12/08/20 11:36 <Aixa Arauz NP - Last Filed: 12/08/20 10:50>
--- NOTE | 2020-12-08 14:11 | MHC.CM.PN ---
Patient was discharged prior to being seen by CM
== END 2020-12-08 11:36 | disposition home or self-care (01) | DRG 207 ==
LOC: HO.ED 09:31 → HO.EDOVER 15:00
PROVIDERS: Internal Medicine Cardiovascular Disease; Admitting Provider Hospitalist; Emergency Provider Emergency Medicine; PCP Internal Medicine Medical Oncology; Visit Provider Hospitalist
DX: I31.9 Disease of pericardium, unspecified (principal); Z20.822 Contact with and (suspected) exposure to COVID-19; Z79.1 Long term (current) use of non-steroidal anti-inflammatories (NSAID); Z79.899 Other long term (current) drug therapy
CPT/HCPCS: 36415; 71045; 71275; 80048; 84484; 85025; 85379; 85652; 86140; 86431; 87635; 93005; 93306; 99285; Q9967

== ENCOUNTER → 2020-12-19 10:44 | Outpatient (BNVA) | payer OTHER, SELFPAY | PROVIDERS: PCP Internal Medicine Medical Oncology; Visit Provider Internal Medicine Cardiovascular Disease | DX: I31.9 Disease of pericardium, unspecified (principal) | CPT/HCPCS: 99212 ==

== ENCOUNTER 2021-01-17 14:16 | Outpatient (REF) | payer OTHER, SELFPAY ==
[2021-01-17 15:58] LABS: Anion Gap 11 (12-20); Blood Urea Nitrogen 12 mg/dL (9-16); Carbon Dioxide 27 mmol/L (22-29); Chloride 105 mmol/L (96-108); Estimated Glomerular Filt Rate > 60; Glucose Random 100 mg/dL (60-115); Potassium 4.1 mmol/L (3.3-5.1); Sodium 139 mmol/L (135-145)
== END 2021-01-17 14:17 | disposition home or self-care (01) ==
LOC: HO.LAB 14:16
PROVIDERS: PCP Internal Medicine Medical Oncology; Visit Provider Internal Medicine Cardiovascular Disease
DX: I31.9 Disease of pericardium, unspecified (principal)
CPT/HCPCS: 36415; 80048

== ENCOUNTER → 2021-03-24 12:24 | Outpatient (BNVA) | payer OTHER, SELFPAY | PROVIDERS: PCP Internal Medicine Medical Oncology; Visit Provider Internal Medicine Cardiovascular Disease | DX: I31.9 Disease of pericardium, unspecified (principal) | CPT/HCPCS: 99212 ==

== ENCOUNTER → 2022-06-22 15:22 | Outpatient (BNVA) | payer BC, SELFPAY | PROVIDERS: PCP Internal Medicine Medical Oncology; Referring Provider Internal Medicine Medical Oncology; Visit Provider Internal Medicine Cardiovascular Disease | DX: I31.9 Disease of pericardium, unspecified (principal) | CPT/HCPCS: 93005 ==

== ENCOUNTER 2023-04-03 08:47 | Outpatient (REF) | payer BC, SELFPAY ==
[2023-04-03 08:58] LABS: MANUAL DIFF FLAG NO
[2023-04-03 09:19] LABS: Basophils Percent Auto 0.3 % (0-2); Eosinophils Absolute Auto 0.1 X10*3/uL (0.0-0.4); Eosinophils Percent Auto 1.6 % (0-4); Hematocrit 47.6 % (42.0-52.0); Imm Gran Abs Auto 0.02 X10*3/uL (0.00-0.03); Imm Gran Pct Auto 0.2 % (0.0-0.4); Lymphocytes Absolute Auto 2.2 X10*3/uL (1.2-4.9); Lymphocytes Percent Auto 24.6 % (20-40); Mean Corpuscular HGB Conc 33.6 g/dl (31.0-36.0); Mean Corpuscular Hemoglobin 30.6 pg (27.0-33.0); Mean Platelet Volume 11.3 fL (9.4-12.4); Monocytes Absolute Auto 0.8 X10*3/uL (0.1-1.2); Monocytes Percent Auto 9.4 % (2-11); Neutrophils Absolute Auto 5.7 x10*3/uL (2.0-8.3); Neutrophils Percent Auto 63.9 % (45-73); Platelet Count 206 X10*3/uL (160-400); Red Blood Count 5.23 X10*6/uL (4.60-5.80); Red Cell Distribution Width 12.4 % (11.0-16.0); White Blood Count 8.9 X10*3/uL (4.8-10.8)
[2023-04-03 10:09] LABS: Alanine Aminotransferase 22 U/L (0-40); Albumin Level 4.2 g/dL (3.5-5.0); Alkaline Phosphatase 65 U/L (39-117); Anion Gap 10 (12-20); Aspartate Amino Transferase 16 U/L (5-37); Bilirubin Total 0.6 mg/dL (0.0-1.0); Blood Urea Nitrogen 13 mg/dL (9-16); Calcium 9.3 mg/dL (8.4-10.2); Carbon Dioxide 26 mmol/L (22-29); Chloride 107 mmol/L (96-108); Cholesterol 159 mg/dL; Estimated Glomerular Filt Rate > 60; Glucose Random 89 mg/dL (60-115); HDL Cholesterol 37 mg/dL; LDL Cholesterol Calculated 108 mg/dl; Sodium 139 mmol/L (135-145); Total Protein 7.3 g/dL (6.5-8.0); Triglycerides 74 mg/dL
== END 2023-04-03 08:48 | disposition home or self-care (01) ==
LOC: HO.LAB 08:47
PROVIDERS: PCP Internal Medicine Medical Oncology; Visit Provider Internal Medicine Medical Oncology
DX: Z00.00 Encounter for general adult medical examination without abnormal findings (principal); F90.9 Attention-deficit hyperactivity disorder, unspecified type; E66.3 Overweight
CPT/HCPCS: 36415; 80053; 80061; 85025

== ENCOUNTER 2025-08-04 08:13 | Outpatient (REF) | payer BC, SELFPAY ==
--- OUTSIDE RECORDS SUMMARY | 2024-04-04 10:30 | XMS_ITS ---
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 Artem Lynn III Primary Care Provider [phone] Allergies Allergen (clinical drug ingredient) Drug/Non Drug Allergy documented on EMR Reaction Allergy Type Onset Date Status Pollen Pollen Unknown Allergy Active oxycodone Oxycodone HCl Unknown Drug Allergy Act amrita Results Component Value Reference Range Notes URINE DIP STICK (Not yet rev iewed by provider) Interpretation:normal Performing Lab: Notes/Report: normal SG 1.000 1.005 - 1.025 pH 5.0 5.0 - 9.0 MONICA neg Negative - NIT neg Negative - PRO neg Negative - Trace GLU neg Negative - KET neg Negative - UBG 0.2 0.1 - 1.8 BELKYS neg 0.2 - 1.3 BLD neg Negative - Menstrating N/A REASON FOR VISIT Annual Physical Exam Medications Medication SIG (Take, Route, Fr equency, Duration) Notes Start Date End Date Status Ibuprofen 600 MG 1 tablet with food o r milk as needed Orally Three times a day Active Omeprazole 20 MG 1 tablet 30 minutes before morning meal Orally Once a day Active Social History Tobacco Use: Social History Observation Description Date Details (start date - stop date) Never Smoker NA - NA Sex Assigned At : Social History Observation Description Sex Assigned At Male Tobacco Use/Smoking Question Answer Notes Patient is a nonsmoker Additional Findings: Tobacco Non-User Aggressive non-smoker Vital Signs Temperature 100.0 degrees Fahrenheit 024 Blood pressure systolic 113 mm Hg 04/04/20 24 Blood pressure diastolic 89 mm Hg 024 Heart Rate 100 /min 04/04/2024 Height 64 in 04/04/2024 Weight 181 lbs 04/04/2024 BMI 31.07 kg/m2 04/04/2024 Encounters Encounter Location Date Provider Diagnosis Artem Lynn III, MD [address] [place] [address] [address] [place] [address] 04/04/2024 Artem Lynn ADHD (attention defi cit hyperactivity disorder) F90.9 and Obesity (BMI 30.0-34.9) E66.9 Assessments Encounter Date Diagnosis (ICD Code) Assessment Notes Treat ment Notes Treatment Clinical Notes 04/04/2024 ADHD (attention deficit hyperactivity disorder) (ICD-10 - F90.9) He is taking no medications were this. This diagnosis was made in the past. It seems in remission at this time. 04/04/2024 Obesity (BMI 30.0-34.9) (ICD-10 - E66.9) We have discussed his diet and nutrition. I have recommended regular physical activity. We made a plan to reduce his weight by one half of a pound per week through regular physical activity and a diet restricted in fat calories and sodium. Plan Of Treatment Medication Medication Name Sig Start Date Stop Date Notes Ibuprofen 600 MG 1 tablet with food o r milk as needed Orally Three times a day Omeprazole 20 MG 1 tablet 30 minutes before morning meal Orally Once a day Pending Test Test Name Order Date URINE DIP STICK 04/04/2024 PROFILE, FASTING (COMPREHENSIVE METABOLI C) 04/04/2024 LIPID PANEL 04/04/2024 CBC w DIFF 04/04/2024 Next Appt Details Follow Up: 1 Year, Reason: a nnual exam review labs Provider Name:Artem Lynn , 08/10/2025 03:00:00 PM, [address] [place] [address] [address], [place], [address], Progress Notes * Yarelis PHANDOB:1990 (33 yo M)Acc No.[id number]:04/04/2024 Progress Notes Patient: Yarelis Espinal Provider: Danielle Lynn MD :1990 A ge:33 Y S ex:Male Date:04/04/2024 Address:[address] [place] [address] [id number] Subjective: * Chief Complaints: * A nnual Physical Exam * HPI: D epression Screening: He returns to the office at the age of 33 for his annual physical examination. He has gained 4 pounds. He feels healthy and well. He is working full-time. He had no difficulty during this Zimmerman pollen season. He has had no chest pain shortness of breath bleeding joint pain or skin lesions. He takes no prescription medications. His examination was unremarkable. He will have comprehensive blood work prior to his next visit. PHQ-9 L ittle interest or pleasure in doing things?Several days F eeling down, depressed, or hopeless M ore than half the days T rouble falling or staying asleep, or sleeping too much N ot at all F eeling tired or having little energy M ore than half the days P oor appetite or overeating S ever F eeling bad about yourself or that you are a failure, or have let yourself or your family down N early every day T rouble concentrating on things, such as reading the newspaper or watching television S everal M oving or speaking so slowly that other people could have noticed; or the opposite, being so fidgety or restless that you have been moving around a lot more than usual M ore than half the days T houghts that you would be better off or of hurting yourself in some way N ot at all T otal Score 1 2 I nterpretation M oderate Depression C OVID-19 Screening: annual,. Questions H ave you experienced fever, chills, cough, sore throat, shortness of breath, difficulty breathing, muscle aches, loss of taste or smell? N o H ave you been exposed to the virus within the last 10 days? N o H ave you travelled internationally in the last 10 days? N o H ave you been exposed to COVID-19 in the past? Y es S BECKY Questions: SDOH Questions I n the past year have you been worried about losing your housing? N o I n the past year have you or any family members you live with been unable to get any of the following when it was really needed? Check all that apply: N one * ROS: G eneral/Constitutional: pain o nly normal aches and pains. C hills d enies.?Fatigue a dmits. F ever d enies. E NT: Decreased hearing d enies. R espiratory: Cough d enies. C ardiovascular: Chest pain with exertion d enies. D yspnea on exertion?denies. S hortness of breath d enies. G astrointestinal: Constipation d enies. D ecreased appetite d enies.?Diarrhea d enies. H eartburn d enies. N ausea d enies. R ectal bleeding?denies. V omiting d enies. H ematology: bruising d enies. p etechiae d enies. S wollen glands n one have been noted. G enitourinary: Frequent urination d enies. M usculoskeletal: Muscle aches d enies. P ainful joints d enies. S ciatica d enies. W eakness d enies. S kin: Itching d enies. R milton d enies. S kin lesion(s)?denies. N eurologic: Difficulty speaking d enies. D izziness d enies.?Headache d enies. L ow back pain d enies. P sychiatric: Depressed mood d enies. * Medical History: * Surgical History: t onsilectomy [facility] * Hospitalization/Major Diagno stic Procedure: C hest pain 11/2020 * Family History: F ather: alive 40 yrs, well. M other: alive 39 yrs, back pain. 1 sister(s) - healthy. . He has no family history of malignancy or cardiovascular disease. His parents and sister remain wellMaternal grandfather as Alzheimer's dementia.. * Social History: T obacco Use: T obacco Use/Smoking P atient is a n onsmoker A dditional Findings: Tobacco Non-User A ggressive non-smoker Aniya sotelo was born in [place], [place]. 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 * Medications: T akingIbuprofen 600 MG Tablet 1 tablet with food or milk as needed Orally Three times a dayTaking Ibuprofen 600 MG Tablet 1 tablet with food or milk as needed Orally Three times a dayDiscontinuedOmeprazole 20 MG Tablet Delayed Release 1 tablet 30 minutes before morning meal Orally Once a dayMedication List reviewed and reconciled with the patientDiscontinued Omeprazole 20 MG Tablet Delayed Release 1 tablet 30 minutes before morning meal Orally Once a dayMedication List reviewed and reconciled with the patient * Allergies: O xycodone HClPollenno[Allergies Verified] Objective: * Vitals: H t: 64, Wt:181, BMI:31.07, BP:113/89, HR:100, Temp:100.0. * Examination: G eneral Examination: GENERAL APPEARANCE: p leasant, well nourished, well developed, in no acute distress, calm and relaxed , obese , man. HEAD: a traumatic, normocephalic. EYES: e debbie, perrla, anicteric, conjugate. EARS: n ormal. NOSE: s eptum intact. ORAL CAVITY: n ormal, unremarkable. NECK/THYROID: n o jugular venous distention, no carotid bruit, thyroid normal. LYMPH NODES: n o enlarged lymph nodes,spleen normal. SKIN: n o suspicious lesions, anicteric. HEART: n o clicks, gallops, murmurs, or rubs, regular rhythm, S1, S2 normal, no s3, or vascular bruits. LUNGS: c lear to auscultation . BREASTS: no masses palpable bilaterally. ABDOMEN: b owel sounds normal, no ascites, no organomegaly, no mass , centripital obesity. RECTAL EXAM: n ot examined. MUSCULOSKELETAL: e xtremities unremarkable, no clubbing, cyanosis or edema. PERIPHERAL PULSES: n ormal. NEUROLOGIC: a lert and oriented, cranial nerves 2-12 grossly intact, deep tendon reflexes 2+ symmetrical, motor strength normal upper and lower extremities, sensory exam intact. PSYCH: a lert, oriented. Assessment: * Assessment: 1. A DHD (attention deficit hyperactivity disorder) - F90.9, He is taking no medications were this. This diagnosis was made in the past. It seems in remission at this time. 2 . O besity (BMI 30.0-34.9) - E66.9, We have discussed his diet and nutrition. I have recommended regular physical activity. We made a plan to reduce his weight by one half of a pound per week through regular physical activity and a diet restricted in fat calories and sodium. Plan: * Treatment: 2. O besity (BMI 30.0-34.9) L AB: PROFILE, FASTING (COMPREHENSIVE METABOLIC) L AB: LIPID PANEL L AB: CBC w DIFF 3. O thers Continue Ibuprofen Tablet, 600 MG, 1 tablet with food or milk as needed, Orally, Three times a day;?Continue Omeprazole Tablet Delayed Release, 20 MG, 1 tablet 30 minutes before morning meal, Orally, Once a day. * Labs: * L ab: URINE DIP STICK n ormal Value Reference Range S G 1.000 1.005 - 1.025 * p H 5.0 5.0 - 9.0 * L EU neg Negative - * N IT neg Negative - * P RO neg Negative - Trace * G KASSI neg Negative - * K ET neg Negative - * U BG 0.2 0.1 - 1.8 * B IL neg 0.2 - 1.3 * B LD neg Negative - * M enstrating N/A * Procedure Codes: 8 1002 URINE-NO MICRO * Preventive Medicine: Counseling: C are goal follow-up plan: Counseling for abnormal BMI given Y es Above Normal BMI Follow-up D ietary management education, guidance, and counseling * Follow Up: 1 Year (Reason: annual exam review labs) * Images: * Sign off status: Completed true * Provider: Danielle Lynn MD Date: 0 04/04/2024 Generated for Deidre aparicio/Cornel/eTransmitting on: 1 10/05/2024 08:16 AM EST History and Physical Notes * HPI (History of Present Illness) Category Sub-Category Detail Notes Depression Screening PHQ-9 Little inte rest or pleasure in doing things: Several days Feeling down, depressed, or hopeless: Mo re than half the days Trouble falling or staying asleep, or sl eeping too much: Not at all Feeling tired or having little energy: M ore than half the days Poor appetite or overeating: Several day s Feeling bad about yourself o r that you are a failure, or have let yourself or your family down: Nearly every day Trouble concentrating on thi ngs, such as reading the newspaper or watching television: Several days Moving or speaking so slowly that other people could have noticed; or the opposite, being so fidgety or restless that you have been moving around a lot more than usual: More than half the days Thoughts that you would be b clarita off or of hurting yourself in some way: Not at all Total Score: 12 Interpretation: Moderate Depression COVID-19 Screening Questions Have you had any new onset fever, chills, cough, congestion, sore throat, shortness of breath, muscle aches?: No Have you been exposed to the virus withi n the last 10 days?: No Have you travelled internationally in last 10 days?: No Have you been exposed to COVID-19 in the past?: Yes SDOH Questions SDOH Questions In the past year have you been worried about losing your housing?: No In the past year have you or any family members you live with been unable to get any of the following when it was really needed? Check all that apply:: None Examination Category Sub-Category Detail Notes General Examination GENERAL APPEARANCE: pleasant , well nourished, well developed, in no acute distress, calm and relaxed , obese , man HEAD: atraumatic, normocep halic EYES: eomi, perrla, anicte heath, conjugate EARS: normal NOSE: septum intact NECK/THYROID: no jugular venous di stention, no carotid bruit, thyroid normal HEART: no clicks, gallops, murmurs, or rubs, regular rhythm, S1, S2 normal, no s3, or vascular bruits LUNGS: clear to auscultatio n ABDOMEN: bowel sounds normal, no ascites, no organomegaly, no mass , centripital obesity NEUROLOGIC: alert and oriented, cranial nerves 2-12 grossly intact, deep tendon reflexes 2+ symmetrical, motor strength normal upper and lower extremities, sensory exam intact SKIN: no suspicious lesion s, anicteric PERIPHERAL PULSES: normal BREASTS: no masses palpable b ilaterally MUSCULOSKELETAL: extremities unremark able, no clubbing, cyanosis or edema LYMPH NODES: no enlarged lymph no rosita,spleen normal RECTAL EXAM: not examined PSYCH: alert, oriented ORAL CAVITY: normal, unremarkable
--- OUTSIDE RECORDS SUMMARY | 2025-04-03 10:24 | XMS_ITS ---
Author Organization Artem Lynn III, MD Address [address] [place] [address] [place] [address] Care Team Providers Care Finding Fastener Name Role Phone Dr. Artem Lynn III Primary Care Provider Social History Sex Assigned At : Social History Observation Description Sex Assigned At Male Encounters Encounter Location Date Provider Diagnosis Artem Lynn III, MD [address] [place] [address] [place] [address] 04/03/2025 Artem Lynn ADHD (attention defi cit hyperactivity disorder) F90.9 ; Acute idiopathic pericarditis I30.0 and Obesity (BMI 30.0-34.9) E66.9 Assessments Encounter Date Diagnosis (ICD Code) Assessment Notes Treat ment Notes Treatment Clinical Notes 04/03/2025 ADHD (attention deficit hyperactivity disorder) (ICD-10 - F90.9) 04/03/2025 Acute idiopathic pericarditis (ICD-10 - I30.0) 04/03/2025 Obesity (BMI 30.0-34.9) (ICD-10 - E66.9) Plan Of Treatment Pending Test Test Name Order Date PROFILE, FASTING (COMPREHENSIVE METABOLI C) 04/03/2025 CBC w DIFF 04/03/2025 Lipid Panel 04/03/2025 Next Appt Details Provider Name:Artem Lynn , 08/10/2025 03:00:00 PM, [address] [place] [address] [place], [address], Progress Notes * Yarelis PHANDOB:1990 (34 yo M)Acc No.[id number]:04/03/2025 Patient: Yarelis WALKER :1990 A ge:34 Y S ex:Male Address:[address] [place] [address] [place] [address] Subjective: * Chief Complaints: * * Medical History: * Surgical History: * Hospitalization/Major Diagno stic Procedure: * Medications: Objective: * Vitals: * Physical Examination: Assessment: * Assessment: 1. A DHD (attention deficit hyperactivity disorder) - F90.9 2 . A cute idiopathic pericarditis - I30.0 3 . O besity (BMI 30.0-34.9) - E66.9 ? Plan: * Treatment: 2. A cute idiopathic pericarditis L AB: PROFILE, FASTING (COMPREHENSIVE METABOLIC) L AB: CBC w DIFF L AB: Lipid Panel 3. O besity (BMI 30.0-34.9) L AB: PROFILE, FASTING (COMPREHENSIVE METABOLIC) L AB: CBC w DIFF L AB: Lipid Panel * Procedure Codes: * true * Date: Generated for Deidre aparicio/Cornel/Titosmitting on: 10/05/2024 08:16 AM EST
--- OUTSIDE RECORDS SUMMARY | 2025-04-06 12:00 | XMS_ITS ---
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 Artem Lynn III Primary Care Provider [phone] REASON FOR VISIT Annual Physical Exam Social History Sex Assigned At : Social History Observation Description Sex Assigned At Male Encounters Encounter Location Date Provider Diagnosis Artem Lynn III, MD [address] [place] [address] [address] [facility] [place] [address] 04/06/2025 Artem Lynn Plan Of Treatment Next Appt Details Provider Name:Artem Lynn , 08/10/2025 03:00:00 PM, [address] [place] [address] [address], [place], [address], Progress Notes * Yarelis PHANDOB:1990 (34 yo M)Acc No.[id number]:04/06/2025 Progress Notes Patient: Yarelis WALKER Provider: Danielle Lynn MD :1990 A ge:34 Y S ex:Male Date:04/06/2025 Address:[id number] Subjective: * Chief Complaints: * 1 . Annual Physical Exam. * Medical History: Objective: * Vitals: Assessment: Plan: * Treatment: * Images: * The named appointment provid er may or may not be the originator of this progress note, and it is not deemed complete until electronically signed by the appointment provider. Sign off status: Pending * Provider: Danielle Lynn MD Date: 0 04/06/2025 Generated for Deidre aparicio/Cornel/Akiko on: 1 10/05/2024 08:17 AM EST
--- OUTSIDE RECORDS SUMMARY | 2025-08-04 08:17 | XMS_ITS | Patient Health Record ---
Author Organization Artem Lynn III, MD Address [address] [place] [address] Care Team Providers Care Propagation Worker Name Role Phone Dr. Artem Lynn III Primary Care Provider Allergies Allergen (clinical drug ingredient) Drug/Non Drug Allergy documented on EMR Reaction Allergy Type Onset Date Status Pollen Pollen Unknown Allergy Active oxycodone Oxycodone HCl Unknown Drug Allergy Act amrtia Reason For Referral No Information Medications Medication SIG (Take, Route, Fr equency, [...] nonsmoker Additional Findings: Tobacco Non-User Aggressive non-smoker Alcohol Screen Question Answer Notes Did you have a drink containing alcohol in the p ast year? No Points 0 Interpretation Negative Problems Problem Type SNOMED Code ICD Code Onset Dates Problem Status W/U Status Risk Notes Problem [id number] Obesity (BMI 30.0-34.9) (E66.9) Active confirmed We have discussed his diet and nutrition. I have recommended regular physical activity. We made a plan to reduce his weight by one half of a pound per week through regular physical activity and a diet restricted in fat calories and sodium. Problem No known drug allergy (situation) (969674502) Other nonmedicinal substance allergy status (Z91.048) Active confirmed This problem is currently inactive. In the spring if he develops pollen allergies. He will use loratadine or diphenhydramine [id number] . Problem Attention deficit hyperactivity disorder (512743938) ADHD (attention deficit hyperactivity disorder) (F90.9) Active confirmed He is taking no medications were this. This diagnosis was made in the past. It seems in remission at this time. Problem [id number] Acute idiopathic pericarditis (I30.0) Active confirmed The pericarditi s has resolved and he is now well. He will be followed in primary care as usual. Encounters Encounter Location Date Provider Diagnosis Artem Lynn III, MD [address] [place] [address] [address] [place] [address] 04/03/2025 Artem Lynn ADHD (attention defi cit [...] Treatment Pending Test Test Name Order Date URINE DIP STICK 04/04/2024 EKG 12/10/2020 PROFILE, FASTING (COMPREHENSIVE METABOLI C) 06/14/2017 PROFILE, FASTING (COMPREHENSIVE METABOLI C) 04/03/2025 PROFILE, FASTING (COMPREHENSIVE METABOLI C) 08/28/2019 PROFILE, FASTING (COMPREHENSIVE METABOLI C) 04/04/2024 LIPID PANEL 08/28/2019 LIPID PANEL 04/04/2024 LIPID PANEL 06/14/2017 CBC w DIFF 08/28/2019 CBC w DIFF 04/04/2024 CBC w DIFF 06/14/2017 CBC w DIFF 04/03/2025 Lipid Panel 04/03/2025 Next Appt Details Provider Name:Artem Lynn , 08/10/2025 03:00:00 PM, [address] [place] [address] [address], [place], [address], Insurance Providers Payer Name Payer Address Payer Phone Subscriber Number Group Number Insured Name Patient Relationship to Insured Coverage Start Date Coverage End Date [facility] [address] [place], [place] [id number] [phone] [id number] Yarelis Clark Self - patient is the insured MED[place] [address] [place], [place] [id number] Yarelis Clark Self - patient is the insured Medical (General) History Medical History History ICD Code resolved left wrist pain tonsillectomy as a child pollen allergy latose intolerance Surgical History Surgery Date(Month/Year) tonsilectomy [place] Hospitalization History Reason Date(Month/Year) Chest pain 11/2020
[2025-08-04 08:50] LABS: MANUAL DIFF FLAG NO
[2025-08-04 10:18] LABS: Hematocrit 48.9 % (42.0-52.0); Hemoglobin 16.1 g/dl (14.0-18.0); Imm Gran Abs Auto 0.02 X10*3/uL (0.00-0.03); Imm Gran Pct Auto 0.3 % (0.0-0.4); Lymphocytes Absolute Auto 1.4 X10*3/uL (1.2-4.9); Mean Corpuscular HGB Conc 32.9 g/dl (31.0-36.0); Mean Corpuscular Hemoglobin 30.6 pg (27.0-33.0); Mean Corpuscular Volume 93.0 fL (80.0-98.0); NRBC Abs Auto 0.000 X10*3/uL (0.0-0.012); NRBC Pct Auto 0.0 /100WBC (0.0-0.2); Platelet Count 217 X10*3/uL (160-400); Red Blood Count 5.26 X10*6/uL (4.60-5.80); White Blood Count 7.9 X10*3/uL (4.8-10.8)
[2025-08-04 11:10] LABS: Alanine Aminotransferase 45 U/L (0-40); Albumin Level 4.6 g/dL (3.5-5.0); Alkaline Phosphatase 76 U/L (39-117); Anion Gap 13 (12-20); Aspartate Amino Transferase 26 U/L (5-37); Blood Urea Nitrogen 15 mg/dL (9-16); Calcium 9.3 mg/dL (8.4-10.2); Carbon Dioxide 24 mmol/L (22-29); Chloride 108 mmol/L (96-108); Cholesterol 145 mg/dL (<200); Estimated Glomerular Filt Rate > 60; HDL Cholesterol 37 mg/dL (>40); Potassium 4.0 mmol/L (3.3-5.1); Sodium 141 mmol/L (135-145); Total Protein 7.4 g/dL (6.5-8.0); Triglycerides 106 mg/dL (<150)
== END 2025-08-04 08:14 | disposition home or self-care (01) ==
LOC: HO.LAB 08:13
PROVIDERS: PCP Internal Medicine Medical Oncology; Visit Provider Internal Medicine Medical Oncology
DX: I30.0 Acute nonspecific idiopathic pericarditis (principal); E66.9 Obesity, unspecified; F90.9 Attention-deficit hyperactivity disorder, unspecified type
CPT/HCPCS: 36415; 80053; 80061; 85025